=== PATIENT | female | born 1950 | race Caucasian/White ===

== ENCOUNTER → 2017-01-19 | Outpatient (CLI) | payer MEDICARE ==
--- NOTE | 2017-01-19 13:44 | CT ---
EXAMINATION TYPE: CT brain wo con DATE OF EXAM: 01/19/2017 1:26 PM COMPARISON: NONE HISTORY: Head injury and acute post traumatic injury per order. Headache after injury. CT DLP: 943.80 mGycm. Automated Exposure Control for Dose Reduction was Utilized. TECHNIQUE: CT scan of the head is performed without contrast. FINDINGS: There is no acute intracranial hemorrhage, mass effect, or midline shift identified. The ventricles and sulci are within normal limits in size. Asymmetry to the ventricles is presumed norm al variant. Leyva-white matter differentiation is maintained. The globes are intact and the visualized sinuses are clear. The calvarium is intact. There is small left-sided supraorbital acute soft tissue hematoma. IMPRESSION: No acute intracranial hemorrhage or midline shift is seen. Results communicated to ordering physician janitorial assistant as requested at time of dictation via telephone.
== END ==
LOC: RADCTMAIN 12:56
PROVIDERS: ATTEND Physician Assistant Medical
DX: S09.90XA Unspecified injury of head, initial encounter (principal)
CPT/HCPCS: 70450

== ENCOUNTER 2022-08-26 14:15 | Inpatient (IN) | payer MEDICARE ==
[2022-08-26 16:13] LABS: Basophils % (A) 0 %; Eosinophils % (A) 0 %; HCT 40.4 % (34.0-46.0); HGB 13.8 gm/dL (11.4-16.0); Lymphocytes # (A) 1.1 k/uL (1.0-4.8); Lymphocytes % (A) 7 %; MCH 30.1 pg (25.0-35.0); MCHC 34.3 g/dL (31.0-37.0); MCV 87.9 fL (80.0-100.0); Mean Platelet Volume 7.6; Monocytes # (A) 0.5 k/uL (0-1.0); Monocytes % (A) 3 %; Neutrophils # (A) 12.9 k/uL (1.3-7.7); Neutrophils % (A) 88 %; Platelet Count 327 k/uL (150-450); RDW 13.4 % (11.5-15.5); WBC 14.7 k/uL (3.8-10.6)
[2022-08-26 16:28] LABS: Albumin 4.7 g/dL (3.5-5.0); Calcium 9.1 mg/dL (8.4-10.2); Potassium 2.3 mmol/L (3.5-5.1); Total Bilirubin 1.6 mg/dL (0.2-1.3); Total Protein 7.5 g/dL (6.3-8.2)
[2022-08-26] MEDS ORDERED: Potassium Replacement Protocol 1 EACH MISC MISCELLANE PRN (17:04)
[2022-08-26] MEDS ORDERED: HYDROmorphone 1 MG/ML 1 ML SYRINGE IVP STA (17:08)
[2022-08-26] MEDS ORDERED: SODIUM CHLORIDE 0.9% 1,000 ML IV ONE (17:08)
[2022-08-26] MEDS ORDERED: ONDANSETRON 4 MG/2 ML VIAL IVP STA (17:08)
--- NOTE | 2022-08-26 17:46 | CT ---
EXAMINATION TYPE: CT abdomen pelvis w con DATE OF EXAM: 08/26/2022 HISTORY: abdominal pain, nausea, vomiting. Abdominal distention. CT DLP: 467.9mGycm Automated Exposure Control for Dose Reduction was Utilized. CONTRAST: CT scan of the abdomen and pelvis is performed with IV Contrast, patient injected with 80cc mL of Iso gagandeep 300. COMPARISON: None. FINDINGS: LUNG BASES: No significant abnormality is appreciated. LIVER/GB: Cholecystectomy clips are seen. PANCREAS: No significant abnormality is seen. SPLEEN: No significant abnormality is seen. ADRENALS: No significant abnormality is seen. KIDNEYS: Incidental subcentimeter exophytic thin-walled cyst left kidney laterally axial image 28 and on the right axial image 37. BOWEL: Small sized hiatal hernia. No suspicious dilatation of stomach or duodenal sweep. No suspiciou s small bowel dilatation. Moderate wall thickening in jejunal loops in the left abdomen. Possible ent eritis. Somewhat redundant nondilated sigmoid colon. Nondilated transverse along with left and right colon. Massively dilated structure in the lower abdomen and pelvis with air-fluid level likely refle cting cecal volvulus with terminal ileum being fluid-filled axial image 53 and coronal image 50. No a bnormal dilatation of ileal loops or of the terminal ileum. Slight swirling of structures in the righ t pelvis noted on coronal images. This is dilated up to 9.0 cm axial image 52. No free air. No suspic ious wall thickening or pneumatosis. UTERUS/ADNEXA: Uterus surgically absent or markedly atrophic. Small to moderate amount free fluid in the pelvis axial image 70 LYMPH NODES: No greater than 1cm abdominal or pelvic lymph nodes are appreciated. OSSEOUS STRUCTURES: No significant abnormality is seen. OTHER: No significant additional abnormality is seen. IMPRESSION: Findings consistent with acute cecal volvulus as detailed above. Critical results communicated to referring emergency room physician medical assistant secretary via telephone at time o f dictation.
[2022-08-26] MEDS ORDERED: POTASSIUM CHLORIDE ER 20 MEQ TAB.ER PO SCH (18:00)
[2022-08-26] MEDS ORDERED: POTASSIUM CHLORIDE 20 MEQ in WATER FOR INJECTION 1 100ML.BAG IVPB SCH (18:00)
--- NOTE | 2022-08-26 18:13 | ED ---
Abdominal Pain HPI - General Chief Complaint: Abdominal Pain Stated Complaint: Abd pain Time Seen by Provider: 08/26/22 17:02 Source: patient Mode of arrival: wheelchair - History of Present Illness Initial Comments: Patient is a 72-year-old female presenting with chief complaint of abdominal pain. Patient states that starting 5 days ago she was having difficulty having a bowel movement or passed gas. She has been experiencing nausea and vomiting. She called her PCPs office who advised trying Metamucil yesterday, she states that last night she started experiencing severe abdominal pain. She admits to bloating. Patient has a history of hypokalemia, she is on oral potassium pills at home, however she has not been taking them for the past few days due to her nausea and vomiting. No hematemesis. No fever or chills. No chest pain or difficulty breathing. No palpitations. - Related Data Home Medications Medication Instructions Recorded Confirmed Atorvastatin Calcium 40 mg PO DAILY 08/26/22 08/26/22 Citalopram Hydrobromide [CeleXA] 20 mg PO DAILY 08/26/22 08/26/22 Levothyroxine Sodium [Synthroid] 75 mcg PO AC-BRKFST 08/26/22 08/26/22 Potassium Chloride ER [K-Dur 20] 40 meq PO DAILY 08/26/22 08/26/22 Allergies Allergy/AdvReac Type Severity Reaction Status Date / Time No Known Allergies Allergy Verified 08/26/22 15:38 Review of Systems ROS Statement: Those systems with pertinent positive or pertinent negative responses have been documented in the HPI. ROS Other: All systems not noted in ROS Statement are negative. Past Medical History Past Medical History: No Reported History History of Any Multi-Drug Resistant Organisms: None Reported Past Surgical History: No Surgical Hx Reported Past Psychological History: No Psychological Hx Reported Smoking Status: Never smoker Past Alcohol Use History: None Reported Past Drug Use History: None Reported General Exam Limitations: no limitations General appearance: alert, in distress Head exam: Present: atraumatic, normocephalic, normal inspection Eye exam: Present: normal appearance Neck exam: Present: normal inspection Respiratory exam: Present: normal lung sounds bilaterally. Absent: respiratory distress, wheezes, rales, rhonchi, stridor Cardiovascular Exam: Present: regular rate, normal rhythm, normal heart sounds. Absent: systolic murmur, diastolic murmur, rubs, gallop, clicks GI/Abdominal exam: Present: distended, tenderness, guarding. Absent: soft Neurological exam: Present: alert, oriented X3, CN II-XII intact Psychiatric exam: Present: normal affect, normal mood Skin exam: Present: warm, dry, intact, normal color. Absent: rash Course Vital Signs 08/26/22 08/26/22 08/26/22 15:33 17:15 17:33 Temperature 98 F Pulse Rate 93 81 88 Respiratory 18 11 L 13 Rate Blood Pressure 159/92 O2 Sat by Pulse 98 Oximetry 08/26/22 08/26/22 08/26/22 17:45 18:00 18:15 Temperature Pulse Rate 81 78 95 Respiratory 13 11 L 13 Rate Blood Pressure O2 Sat by Pulse Oximetry 08/26/22 18:30 Temperature Pulse Rate 87 Respiratory 7 L Rate Blood Pressure O2 Sat by Pulse Oximetry Medical Decision Making - Medical Decision Making Patient is a 72-year-old female presenting with chief complaint of abdominal pain and distention accompanied by nausea and vomiting. Patient has had several days with inability to pass bowel movement or gas. Physical examination abdomen is hard and distended, intense diffuse pain. Lab work shows potassium of 2.3, replacement is ordered. Creatinine 2.6, consistent with patient's baseline. Bilirubin 1.6, patient has had cholecystectomy. CT shows acute cecal volvulus dilated up to 9.0 cm. No free air, no suspicious wall thickening or pneumatosis. Findings discussed with surgeon quality controller Dr. Wright, instructed to place patient nothing by mouth and call OR to arrange for stat surgery. Surgery instructed to call OR, I conveyed these findings and the need for surgery to the patient. She reports improved pain after Dilaudid, however still having some nausea and vomiting. She is instructed that she cannot nothing by mouth. She is agreeable with this plan. I discussed this case with my attending Dr. Moses. - Lab Data Result diagrams: 08/26/22 21:45 08/26/22 21:45 Lab Results 08/26/22 08/26/22 08/26/22 Range/Units 15:40 16:08 16:08 WBC 14.7 H (3.8-10.6) k/uL RBC 4.60 (3.80-5.40) m/uL Hgb 13.8 (11.4-16.0) gm/dL Hct 40.4 (34.0-46.0) % MCV 87.9 (80.0-100.0) fL MCH 30.1 (25.0-35.0) pg MCHC 34.3 (31.0-37.0) g/dL RDW 13.4 (11.5-15.5) % Plt Count 327 (150-450) k/uL MPV 7.6 Neutrophils % 88 % Lymphocytes % 7 % Monocytes % 3 % Eosinophils % 0 % Basophils % 0 % Neutrophils # 12.9 H (1.3-7.7) k/uL Lymphocytes # 1.1 (1.0-4.8) k/uL Monocytes # 0.5 (0-1.0) k/uL Eosinophils # 0.0 (0-0.7) k/uL Basophils # 0.0 (0-0.2) k/uL Sodium 135 L (137-145) mmol/L Potassium 2.3 L* (3.5-5.1) mmol/L Chloride 100 (98-107) mmol/L Carbon Dioxide 25 (22-30) mmol/L Anion Gap 10 mmol/L BUN 13 (7-17) mg/dL Creatinine 1.26 H (0.52-1.04) mg/dL Est GFR (CKD-EPI)AfAm 49 (>60 ml/min/1.73 sqM) Est GFR (CKD-EPI)NonAf 43 (>60 ml/min/1.73 sqM) Glucose 127 H (74-99) mg/dL Calcium 9.1 (8.4-10.2) mg/dL Magnesium 2.0 (1.6-2.3) mg/dL Total Bilirubin 1.6 H (0.2-1.3) mg/dL AST 28 (14-36) U/L ALT 20 (4-34) U/L Alkaline Phosphatase 70 (38-126) U/L Total Protein 7.5 (6.3-8.2) g/dL Albumin 4.7 (3.5-5.0) g/dL Amylase 85 (30-110) U/L Lipase 121 (23-300) U/L Urine Color Colorless Urine Appearance Clear (Clear) Urine pH 5.5 (5.0-8.0) Ur Specific [place] 1.026 (1.001-1.035) Urine Protein Trace H (Negative) Urine Glucose (UA) Negative (Negative) Urine Ketones Negative (Negative) Urine Blood Small H (Negative) Urine Nitrite Negative (Negative) Urine Bilirubin Negative (Negative) Urine Urobilinogen <2.0 (<2.0) mg/dL Ur Leukocyte Esterase Negative (Negative) Urine RBC 7 H (0-5) /hpf Urine WBC 1 (0-5) /hpf Urine Bacteria Rare H (None) /hpf Hyaline Casts 4 H (0-2) /lpf Urine Mucus Rare H (None) /hpf Critical Care Time Critical Care Time: Yes Total Critical Care Time: 31 Disposition Clinical Impression: Cecal volvulus Disposition: ADMITTED IP TO THIS [facility] Condition: Serious Time of Disposition: 18:06 Decision to Admit Reason: Admit from EC Decision Date: 08/26/22 Decision Time: 18:06
[2022-08-26] MEDS ORDERED: HYDROmorphone 1 MG/ML 1 ML SYRINGE IVP PRN (19:06)
[2022-08-26] MEDS ORDERED: NALOXONE 0.4 MG/ML 1 ML VIAL IV PRN (19:06)
[2022-08-26] MEDS ORDERED: PHENYLEPHRINE-0.9% NACL SYG 1,000 MCG/10 ML SYRINGE ONE (19:30)
[2022-08-26] MEDS ORDERED: PROPOFOL 10 MG/ML 20 ML VIAL IV ONE (19:30)
[2022-08-26] MEDS ORDERED: SODIUM CHLORIDE 0.9% 100 ML with ceFAZolin 2,000 MG IV ONE ×2 (19:30)
[2022-08-26] MEDS ORDERED: LIDOCAINE 4% LTA KIT (4 ML) TOPICAL ONE (19:30)
[2022-08-26] MEDS ORDERED: SUCCINYLCHOLINE CHLORIDE 200 MG/10 ML VIAL IV ONE (19:30)
[2022-08-26] MEDS ORDERED: fentaNYL (PF) 50 MCG/ML 2 ML AMP ONE (19:30)
[2022-08-26] MEDS ORDERED: HEPARIN SODIUM,PORCINE 5,000 UNIT/ML 1 ML VIAL ONE (19:30)
[2022-08-26] MEDS ORDERED: ROCURONIUM 10 MG/ML (5 ML VIAL) IV ONE (19:30)
[2022-08-26] MEDS ORDERED: MIDAZOLAM 2 MG/2 ML VIAL ONE (19:30)
[2022-08-26] MEDS ORDERED: LACTATED RINGERS 1,000 ML IV ONE (19:30)
--- NOTE | 2022-08-26 19:34 | P.GSHP ---
History of Present Illness H&P Date: 08/26/22 Chief Complaint: Abdominal pain nausea vomiting This is a 72-year-old female who has a three-day history of progressive abdominal pain nausea vomiting. Patient presents emergency room was found have acute cecal volvulus with a massively dilated cecum. Patient states she's had pain for the last 3 days with progressive nausea and vomiting Past Medical History Past Medical History: No Reported History History of Any Multi-Drug Resistant Organisms: None Reported Past Surgical History: No Surgical Hx Reported Past Psychological History: No Psychological Hx Reported Smoking Status: Never smoker Past Alcohol Use History: None Reported Past Drug Use History: None Reported Medications and Allergies Home Medications Medication Instructions Recorded Confirmed Type Atorvastatin Calcium 40 mg PO DAILY 08/26/22 08/26/22 History Citalopram Hydrobromide [CeleXA] 20 mg PO DAILY 08/26/22 08/26/22 History Levothyroxine Sodium [Synthroid] 75 mcg PO AC-BRKFST 08/26/22 08/26/22 History Potassium Chloride ER [K-Dur 20] 40 meq PO DAILY 08/26/22 08/26/22 History Allergies Allergy/AdvReac Type Severity Reaction Status Date / Time No Known Allergies Allergy Verified 08/26/22 15:38 Surgical - Exam Vital Signs Temp Pulse Resp BP Pulse Ox 98 F 93 18 159/92 98 08/26/22 15:33 08/26/22 15:33 08/26/22 15:33 08/26/22 15:33 08/26/22 15:33 - General well developed, moderate distress - Eyes PERRL - ENT normal pinna - Neck no masses - Respiratory normal expansion - Cardiovascular Rhythm: regular - Abdomen Abdomen is distended. There is significant tenderness right lower quadrant Abdomen: soft Results - Labs 08/26/22 16:08 08/26/22 16:08 Abnormal Lab Results - Last 24 Hours (Table) 08/26/22 08/26/22 Range/Units 16:08 16:08 WBC 14.7 H (3.8-10.6) k/uL Neutrophils # 12.9 H (1.3-7.7) k/uL Sodium 135 L (137-145) mmol/L Potassium 2.3 L* (3.5-5.1) mmol/L Creatinine 1.26 H (0.52-1.04) mg/dL Glucose 127 H (74-99) mg/dL Total Bilirubin 1.6 H (0.2-1.3) mg/dL Diabetes panel 08/26/22 Range/Units 16:08 Sodium 135 L (137-145) mmol/L Potassium 2.3 L* (3.5-5.1) mmol/L Chloride 100 (98-107) mmol/L Carbon Dioxide 25 (22-30) mmol/L BUN 13 (7-17) mg/dL Creatinine 1.26 H (0.52-1.04) mg/dL Glucose 127 H (74-99) mg/dL Calcium 9.1 (8.4-10.2) mg/dL AST 28 (14-36) U/L ALT 20 (4-34) U/L Alkaline Phosphatase 70 (38-126) U/L Total Protein 7.5 (6.3-8.2) g/dL Albumin 4.7 (3.5-5.0) g/dL Calcium panel 08/26/22 Range/Units 16:08 Calcium 9.1 (8.4-10.2) mg/dL Albumin 4.7 (3.5-5.0) g/dL Pituitary panel 08/26/22 Range/Units 16:08 Sodium 135 L (137-145) mmol/L Potassium 2.3 L* (3.5-5.1) mmol/L Chloride 100 (98-107) mmol/L Carbon Dioxide 25 (22-30) mmol/L BUN 13 (7-17) mg/dL Creatinine 1.26 H (0.52-1.04) mg/dL Glucose 127 H (74-99) mg/dL Calcium 9.1 (8.4-10.2) mg/dL Adrenal panel 08/26/22 Range/Units 16:08 Sodium 135 L (137-145) mmol/L Potassium 2.3 L* (3.5-5.1) mmol/L Chloride 100 (98-107) mmol/L Carbon Dioxide 25 (22-30) mmol/L BUN 13 (7-17) mg/dL Creatinine 1.26 H (0.52-1.04) mg/dL Glucose 127 H (74-99) mg/dL Calcium 9.1 (8.4-10.2) mg/dL Total Bilirubin 1.6 H (0.2-1.3) mg/dL AST 28 (14-36) U/L ALT 20 (4-34) U/L Alkaline Phosphatase 70 (38-126) U/L Total Protein 7.5 (6.3-8.2) g/dL Albumin 4.7 (3.5-5.0) g/dL Assessment and Plan Assessment: Cecal volvulus. Patient will undergo exploratory laparotomy with possible right colectomy. .
--- NOTE | 2022-08-26 20:15 | P.OP ---
Date of Procedure: 08/26/22 Preoperative Diagnosis: Cecal volvulus Postoperative Diagnosis: Cecal volvulus with ischemic bowel Procedure(s) Performed: Right colectomy Anesthesia: AURELIO Surgeon: Win Wright Estimated Blood Loss (ml): 50 Pathology: other (Right colon) Condition: critical Disposition: ICU Operative Findings: Potassium 2.3 Description of Procedure: The patient's placed on the operative table in the supine position. She received general endotracheal tube anesthesia. Her abdomen was prepped and draped usual sterile fashion. The skin was incised in midline. The peritoneal cavity is opened. Left cautery used to divide the abdominal wall. The cecum was massively distended and appeared to be ischemic. The cecum was brought up in the wound. And then an adhesive band causing the volvulus was lysed. There was patchy necrosis cecum. Decided perform right colectomy. The terminal ileum was transected with a GI stapler. And then the distal right colon was transected with a GI stapler. Using the Enseal device the mesentery the bowel was divided. Specimen sent to pathology. [id number] functional end-to-end staple anastomosis created using the MAURICIO and TA stapler. 3 adjacent tissue uses a crotch stitch. The abdomen was irrigated there is no bleeding seen. The fascia was then closed with looped #1 PDS suture. Skin was closed jorge. Patient tolerated procedure well. She was sent to recovery room in stable condition. The patient was receiving her potassium replacement intraoperatively.
[2022-08-26] MEDS ORDERED: HYDROmorphone 0.5 MG/0.5 ML SYRINGE IVP ONE (21:06)
--- NOTE | 2022-08-26 21:23 | XR ---
EXAMINATION TYPE: XR chest 1V portable DATE OF EXAM: 08/26/2022 CLINICAL HISTORY: Central line placement. TECHNIQUE: Single AP portable upright view of the chest is obtained. COMPARISON: None FINDINGS: There is right internal jugular central venous catheter terminating in right atrium. Mild interstitial prominence bilaterally. No suspicious focal airspace opacity, pleural effusion, or pneum othorax seen bilaterally. Cardiac silhouette size is within normal limits. Osseous structures are int act. Cholecystectomy clips are noted. IMPRESSION: As above.
[2022-08-26 21:53] LABS: Glucose,Whole Blood 173 mg/dL (70-110)
[2022-08-26 21:57] LABS: Basophils % (A) 0 %; Eosinophils % (A) 0 %; HCT 34.5 % (34.0-46.0); Lymphocytes # (A) 0.5 k/uL (1.0-4.8); Lymphocytes % (A) 5 %; MCH 31.2 pg (25.0-35.0); MCHC 34.8 g/dL (31.0-37.0); MCV 89.7 fL (80.0-100.0); Mean Platelet Volume 7.4; Monocytes # (A) 0.5 k/uL (0-1.0); Monocytes % (A) 4 %; Neutrophils # (A) 10.4 k/uL (1.3-7.7); Neutrophils % (A) 91 %; Platelet Count 297 k/uL (150-450); RBC 3.84 m/uL (3.80-5.40); WBC 11.5 k/uL (3.8-10.6)
[2022-08-26 22:20] LABS: Calcium 8.1 mg/dL (8.4-10.2)
[2022-08-26] MEDS: HYDROmorphone 1 MG/ML 1 ML SYRINGE IVP PRN (22:23)
[2022-08-26] MEDS: D5-0.45% NACL WITH KCL 20MEQ/L 1,000 ML IV SCH (22:23)
[2022-08-26] MEDS: ONDANSETRON 4 MG/2 ML VIAL IVP PRN (22:24)
[2022-08-26 22:31] LABS: Potassium 2.6 mmol/L (3.5-5.1)
[2022-08-26] MEDS: POTASSIUM CHLORIDE 20 MEQ in WATER FOR INJECTION 1 100ML.BAG IVPB SCH (22:42)
[2022-08-26 23:47] LABS: Appearance,Urine Clear (Clear); Bacteria,Urine Rare /hpf; Bilirubin,Urine Negative (Negative); Blood,Urine Small (Negative); Color,Urine Colorless; Glucose,Urine (UA) Negative (Negative); Hyaline Casts,Urine 4 /lpf (0-2); Ketones,Urine Negative (Negative); Leukocyte Esterase,Urine Negative (Negative); Mucus,Urine Rare /hpf; Nitrite,Urine Negative (Negative); PH, Urine 5.5 (5.0-8.0); Protein,Urine Trace (Negative); RBC,Urine 7 /hpf (0-5); Specific Gravity,Urine 1.026 (1.001-1.035); Urobilinogen,Urine <2.0 mg/dL (<2.0); WBC,Urine 1 /hpf (0-5)
[2022-08-26] MEDS: HEPARIN SODIUM,PORCINE/PF 5,000 UNIT/0.5 ML SYRINGE SQ SCH (23:54)
[2022-08-27] MEDS: POTASSIUM CHLORIDE 20 MEQ in WATER FOR INJECTION 1 100ML.BAG IVPB SCH ×2 (00:24→02:41)
[2022-08-27] MEDS: HYDROmorphone 1 MG/ML 1 ML SYRINGE IVP PRN ×6 (02:41→23:51)
[2022-08-27] MEDS: D5-0.45% NACL WITH KCL 20MEQ/L 1,000 ML IV SCH ×3 (04:55→23:46)
[2022-08-27 06:10] LABS: Basophils % (A) 0 %; Eosinophils % (A) 0 %; HCT 33.3 % (34.0-46.0); Lymphocytes # (A) 0.5 k/uL (1.0-4.8); Lymphocytes % (A) 4 %; MCH 29.9 pg (25.0-35.0); MCHC 32.9 g/dL (31.0-37.0); MCV 90.7 fL (80.0-100.0); Mean Platelet Volume 7.8; Monocytes # (A) 0.6 k/uL (0-1.0); Monocytes % (A) 5 %; Neutrophils # (A) 11.1 k/uL (1.3-7.7); Neutrophils % (A) 89 %; Platelet Count 304 k/uL (150-450); RBC 3.67 m/uL (3.80-5.40); WBC 12.5 k/uL (3.8-10.6)
[2022-08-27 06:32] LABS: Calcium 7.7 mg/dL (8.4-10.2); Magnesium 1.7 mg/dL (1.6-2.3); Potassium 3.6 mmol/L (3.5-5.1)
[2022-08-27] MEDS ORDERED: Magnesium Replacement Protocol 1 EACH MISC MISCELLANE PRN (06:51)
[2022-08-27] MEDS: MAGNESIUM SULFATE-D5W PMX 1 GM in DEXTROSE/WATER 1 100ML.BAG IVPB SCH ×2 (07:30→09:21)
[2022-08-27] MEDS: POTASSIUM CHLORIDE 10 MEQ in WATER FOR INJECTION 1 100ML.BAG IVPB SCH ×4 (07:31→17:01)
[2022-08-27] MEDS: ALVIMOPAN 12 MG CAPSULE PO SCH ×2 (09:21→20:42)
[2022-08-27] MEDS: HEPARIN SODIUM,PORCINE/PF 5,000 UNIT/0.5 ML SYRINGE SQ SCH ×3 (09:21→23:47)
--- NOTE | 2022-08-27 11:10 | P.CNPUL ---
History of Present Illness Consult date: 08/27/22 Requesting physician: Win Wright Reason for consult: other Chief complaint: Abdominal pain. History of present illness: Pulmonary/critical care consult dated 08/27/2022. 72-year-old female who presents to the emergency department, on August 26, complaining of abdominal pain. The pain started 5 days ago when she was having a bowel movement. She has been having some nausea and vomiting. She called her primary care physician who recommended Metamucil. The abdominal pain got much more severe, so she came in to be evaluated. A computed tomography scan of the abdomen was performed, and was consistent with an acute cecal volvulus. The patient ended up going to the operating room yesterday, he had a right colectomy. Because of severe hypokalemia, she came back to the ICU. Currently, she is resting comfortably. She is postop day #1. She is on 2 L of oxygen. She's getting dextrose with half-normal saline and 20 mg once a potassium at 125 mL an hour. This morning's potassium is 3.6. She has a history of chronically low potassium, hyperlipidemia, and hypothyroidism. White count 12.5, hemoglobin 11, hematocrit 33.3, and platelet count 304,000. Sodium 135, potassium 3.6, chlorides 104, CO2 26, BUN 13, creatinine 1.14. The chest x-ray from yesterday is reviewed. Review of Systems REVIEW OF SYSTEMS: CONSTITUTIONAL: [Negative.] NEUROLOGIC: [ Negative.] HEENT: [ Negative.] CARDIAC: [Negative.] PULMONARY: [Negative.] GI: Abdominal pain, nausea, and vomiting. : [Negative.] RHEUMATOLOGIC: [ Negative.] IMMUNOLOGIC: [ Negative.] ENDOCRINE: [Negative. ] DERMATOLOGIC: [Negative.] Past Medical History Past Medical History: No Reported History History of Any Multi-Drug Resistant Organisms: None Reported Past Surgical History: No Surgical Hx Reported Past Psychological History: No Psychological Hx Reported Smoking Status: Never smoker Past Alcohol Use History: None Reported Past Drug Use History: None Reported Medications and Allergies Home Medications Medication Instructions Recorded Confirmed Type Atorvastatin Calcium 40 mg PO DAILY 08/26/22 08/26/22 History Citalopram Hydrobromide [CeleXA] 20 mg PO DAILY 08/26/22 08/26/22 History Levothyroxine Sodium [Synthroid] 75 mcg PO AC-BRKFST 08/26/22 08/26/22 History Potassium Chloride ER [K-Dur 20] 40 meq PO DAILY 08/26/22 08/26/22 History Allergies Allergy/AdvReac Type Severity Reaction Status Date / Time No Known Allergies Allergy Verified 08/26/22 15:38 Physical Exam Osteopathic Statement: *. No significant issues noted on an osteopathic str uctural exam other than those noted in the History and Physical/Consult. Vitals: Vital Signs Temp Pulse Pulse Resp BP BP Pulse Ox 08/27/22 10:30 82 12 107/61 98 08/27/22 10:00 82 12 118/60 98 08/27/22 09:30 88 14 118/60 98 08/27/22 09:00 92 12 124/73 98 08/27/22 08:30 98 18 114/63 98 08/27/22 08:00 99.2 F 89 12 116/75 97 08/27/22 07:30 98 30 H 139/75 99 08/27/22 07:00 100 17 121/67 99 08/27/22 06:30 92 83 H 115/68 98 08/27/22 06:00 93 25 H 112/73 98 08/27/22 05:30 100 15 129/77 99 08/27/22 05:00 95 14 120/66 99 08/27/22 04:30 89 13 115/62 99 08/27/22 04:00 98.8 F 96 85 8 L 120/65 98 08/27/22 03:30 95 9 L 124/66 98 08/27/22 03:00 96 11 L 138/74 98 08/27/22 02:45 99 14 134/74 99 08/27/22 02:30 94 12 125/66 98 08/27/22 02:15 92 14 124/68 98 08/27/22 02:00 94 12 119/70 99 08/27/22 01:45 91 13 121/72 99 08/27/22 01:30 89 11 L 122/68 99 08/27/22 01:15 85 11 L 124/69 98 08/27/22 01:00 89 10 L 122/71 98 08/27/22 00:45 86 9 L 129/76 99 08/27/22 00:30 86 11 L 120/69 99 08/27/22 00:15 89 9 L 127/69 98 08/27/22 00:11 89 15 127/69 98 08/27/22 00:00 97.7 F 93 8 L 135/74 98 08/26/22 23:59 85 9 L 08/26/22 23:45 94 12 120/67 99 08/26/22 23:30 93 8 L 130/73 98 08/26/22 23:15 93 9 L 123/75 99 08/26/22 23:00 88 9 L 134/77 99 08/26/22 22:45 95 18 130/72 98 08/26/22 22:30 91 28 H 142/73 98 08/26/22 22:15 86 15 152/86 99 08/26/22 22:00 97.7 F 91 18 150/73 99 08/26/22 21:49 91 42 H 99 08/26/22 21:30 85 16 148/68 100 08/26/22 21:15 84 16 146/71 100 08/26/22 21:00 90 18 167/87 100 08/26/22 20:50 97.7 F 90 12 152/86 99 08/26/22 20:45 95 18 152/72 100 08/26/22 20:31 97.3 F L 91 20 136/75 98 08/26/22 18:30 87 7 L 08/26/22 18:15 95 13 08/26/22 18:00 78 11 L 08/26/22 17:45 81 13 08/26/22 17:33 88 13 08/26/22 17:15 81 11 L 08/26/22 15:33 98 F 93 18 159/92 98 Intake and Output 08/26/22 08/27/22 08/27/22 22:59 06:59 14:59 Intake Total 1950 1200 700 Output Total 795 305 140 Balance 1155 895 560 Intake: IV 1950 1200 600 D5-0.45% NaCl with KCl 250 1000 500 20Meq/l 1,000 ml @ 125 mls/hr IV .Q8H [facility] Rx#: [id number] Potassium Chloride 20 meq 100 200 100 In Water For Injection 1 100ml.bag @ 50 mls/hr IVPB Q2H [facility] Rx#: [id number] Intake, IV Titration 100 Amount Magnesium Sulfate-D5w Pmx 100 1 gm In Dextrose/Water 1 100ml.bag @ 100 mls/hr IVPB Q1H [facility] Rx#: [id number] Output: Urine 775 305 140 Estimated Blood Loss 20 Other: Voiding Method Indwelling Catheter Indwelling Catheter Weight 43.091 kg 53.3 kg No acute distress, oriented 3. Currently on 2 L of oxygen. HEENT examination is grossly unremarkable. Neck supple. Full range of motion. No adenopathy thyromegaly or neck vein distention. Cardiovascular examination reveals regular rhythm rate. S1-S2 normal. No S3 or S4. No discernible murmur noted. Heart rate 81 bpm. Lungs reveal clear breath sounds. Breath sounds are equal bilaterally. No adventitious lung sounds including wheezes rhonchi or crackles. Abdomen is soft. No bowel sounds. Dressing is noted. Extremities are intact. No cyanosis clubbing or edema. Skin is without rash or lesion. Neurologic examination is brief but nonfocal. Results - Laboratory Findings CBC and BMP: 08/27/22 05:55 08/27/22 05:55 Abnormal lab findings: Abnormal Labs 08/26/22 08/26/22 08/26/22 15:40 16:08 16:08 WBC 14.7 H RBC Hgb Hct Neutrophils # 12.9 H Lymphocytes # Sodium 135 L Potassium 2.3 L* Creatinine 1.26 H Glucose 127 H POC Glucose (mg/dL) Calcium Total Bilirubin 1.6 H Urine Protein Trace H Urine Blood Small H Urine RBC 7 H Urine Bacteria Rare H Hyaline Casts 4 H Urine Mucus Rare H 08/26/22 08/26/22 08/26/22 21:45 21:45 21:51 WBC 11.5 H RBC Hgb Hct Neutrophils # 10.4 H Lymphocytes # 0.5 L Sodium 133 L Potassium 2.6 L* Creatinine 1.13 H Glucose 172 H POC Glucose (mg/dL) 173 H Calcium 8.1 L Total Bilirubin Urine Protein Urine Blood Urine RBC Urine Bacteria Hyaline Casts Urine Mucus 08/27/22 08/27/22 05:55 05:55 WBC 12.5 H RBC 3.67 L Hgb 11.0 L Hct 33.3 L Neutrophils # 11.1 H Lymphocytes # 0.5 L Sodium 135 L Potassium Creatinine 1.14 H Glucose 136 H POC Glucose (mg/dL) Calcium 7.7 L Total Bilirubin Urine Protein Urine Blood Urine RBC Urine Bacteria Hyaline Casts Urine Mucus - Diagnostic Findings Chest x-ray: image reviewed Assessment and Plan Assessment: Postop day #1, status post right colectomy for acute cecal volvulus, and incisional hernia repair. History of hyperlipidemia. History of hypothyroidism. Her chronically low potassium. Plan: Plan dated 08/27/2022. The patient could be transferred out of the intensive care unit. Her potassium is now 3.6. The patient is receiving O2 at 2 L. Labs, x-rays, medications are all reviewed. The patient did well with surgery. She is postop day #1. She continues on D5.45, with 20 meq of potassium at 125 mL an hour. Time with Patient: Greater than 30
--- NOTE | 2022-08-27 11:36 | P.CONS ---
History of Present Illness - Reason for Consult Consult date: 08/27/22 Hypothyroidism Requesting physician: Win Wright - History of Present Illness Patient is a 72 yo female with hypothyroidism, dyslipidemia, and depression who presented with complaints of abdominal pain. CT abdomen and plevis showed acute cecal volvulus she underwent emergent right sided colectomy. Patient seen and examined at bedside. She reports that she started having some abdominal pain initially last Tuesday after an episode of vomiting. Her pain became excruciating on Tuesday night and morning. Was mostly right sided. Currently her pain is recently controlled, she denies any nausea or vomiting, denies any shortness of breath, denies any chest pain. Pertinent positives and negatives as discussed in HPI, a complete review of systems was performed and all other systems are negative. Vital signs reviewed General: nontoxic, mild distress due to pain, appears at stated age Derm: warm, dry Head: atraumatic, normocephalic, symmetric Eyes: EOMI, no lid lag, anicteric sclera, pupils equal round reactive to light ENT: Nose and ears atraumatic, no thrush, no pharyngeal erythema Neck: No thyromegaly, no cervical lymphadenopathy, trachea midline, supple Mouth: no lip lesion, mucus membranes moist Cardiovascular: S1S2 reg, no murmur, positive posterior tibial pulse bilateral, no edema, capillary refill less than 2 seconds Lungs: Decreased breath sounds bilateral,, no rhonchi, no rales, no wheeze, no accessory muscle use Abdominal: soft, tender to palpation diffusely, dressing in place over , no guarding, no appreciable organomegaly, normal bowel sounds Ext: no gross muscle atrophy, muscle strength 5 out of 5 in all 4 extremities, no contractures Neuro: CN II-XII grossly intact, light touch intact all 4 extremities, finger to nose within normal limits, Psych: Alert, oriented, appropriate affect Assessment/Plan: Acute Cecal Volvulus s/p right colectomy - surgical management - pain control - IV fluids - entreg Acute blood loss anemia - follow CBC - no indication for transfusion CKD III, at baseline - follow BMP closely - Avoid additional nephrotoxic agents Hypokalemia, resolved - continue to monitor Chornic: Hypothyroidism- levothyroxine Dyslipidemia- resume lipitor once tolerating orals Anxiety- celexa once tolerating orals Thank you for allowing us to participate in the care of this pleasant patient. Do not hesitate to contact us with questions. Someone can be reached from the [facility] hospitalist group all hours of the day at [phone] or via Charge Payment. Past Medical History Past Medical History: No Reported History History of Any Multi-Drug Resistant Organisms: None Reported Past Surgical History: No Surgical Hx Reported Past Psychological History: No Psychological Hx Reported Smoking Status: Never smoker Past Alcohol Use History: None Reported Past Drug Use History: None Reported Medications and Allergies Home Medications Medication Instructions Recorded Confirmed Type Atorvastatin Calcium 40 mg PO DAILY 08/26/22 08/26/22 History Citalopram Hydrobromide [CeleXA] 20 mg PO DAILY 08/26/22 08/26/22 History Levothyroxine Sodium [Synthroid] 75 mcg PO AC-BRKFST 08/26/22 08/26/22 History Potassium Chloride ER [K-Dur 20] 40 meq PO DAILY 08/26/22 08/26/22 History Allergies Allergy/AdvReac Type Severity Reaction Status Date / Time No Known Allergies Allergy Verified 08/26/22 15:38 Physical Exam Osteopathic Statement: *. No significant issues noted on an osteopathic structural exam other than those noted in the History and Physical/Consult. Vitals: Vital Signs Temp Pulse Pulse Resp BP BP Pulse Ox 08/27/22 07:30 98 30 H 139/75 99 08/27/22 07:00 100 17 121/67 99 08/27/22 06:30 92 83 H 115/68 98 08/27/22 06:00 93 25 H 112/73 98 08/27/22 05:30 100 15 129/77 99 08/27/22 05:00 95 14 120/66 99 08/27/22 04:30 89 13 115/62 99 08/27/22 04:00 98.8 F 96 85 8 L 120/65 98 08/27/22 03:30 95 9 L 124/66 98 08/27/22 03:00 96 11 L 138/74 98 08/27/22 02:45 99 14 134/74 99 08/27/22 02:30 94 12 125/66 98 08/27/22 02:15 92 14 124/68 98 08/27/22 02:00 94 12 119/70 99 08/27/22 01:45 91 13 121/72 99 08/27/22 01:30 89 11 L 122/68 99 08/27/22 01:15 85 11 L 124/69 98 08/27/22 01:00 89 10 L 122/71 98 08/27/22 00:45 86 9 L 129/76 99 08/27/22 00:30 86 11 L 120/69 99 08/27/22 00:15 89 9 L 127/69 98 08/27/22 00:11 89 15 127/69 98 08/27/22 00:00 97.7 F 93 8 L 135/74 98 08/26/22 23:59 85 9 L 08/26/22 23:45 94 12 120/67 99 08/26/22 23:30 93 8 L 130/73 98 08/26/22 23:15 93 9 L 123/75 99 08/26/22 23:00 88 9 L 134/77 99 08/26/22 22:45 95 18 130/72 98 08/26/22 22:30 91 28 H 142/73 98 08/26/22 22:15 86 15 152/86 99 08/26/22 22:00 97.7 F 91 18 150/73 99 08/26/22 21:49 91 42 H 99 08/26/22 21:30 85 16 148/68 100 08/26/22 21:15 84 16 146/71 100 08/26/22 21:00 90 18 167/87 100 08/26/22 20:50 97.7 F 90 12 152/86 99 08/26/22 20:45 95 18 152/72 100 08/26/22 20:31 97.3 F L 91 20 136/75 98 08/26/22 18:30 87 7 L 08/26/22 18:15 95 13 08/26/22 18:00 78 11 L 08/26/22 17:45 81 13 08/26/22 17:33 88 13 08/26/22 17:15 81 11 L 08/26/22 15:33 98 F 93 18 159/92 98 Intake and Output 08/26/22 08/27/22 08/27/22 22:59 06:59 14:59 Intake Total 1450 1200 125 Output Total 445 305 50 Balance 1005 895 75 Intake: IV 1450 1200 125 D5-0.45% NaCl with KCl 250 1000 125 20Meq/l 1,000 ml @ 125 mls/hr IV .Q8H [facility] Rx#: [id number] Potassium Chloride 20 meq 100 200 In Water For Injection 1 100ml.bag @ 50 mls/hr IVPB Q2H [facility] Rx#: [id number] Output: Urine 425 305 50 Estimated Blood Loss 20 Other: Voiding Method Indwelling Catheter Weight 43.091 kg 53.3 kg Results CBC & Chem 7: 08/27/22 05:55 08/27/22 05:55 Labs: Abnormal Lab Results - Last 24 Hours (Table) 08/26/22 08/26/22 08/26/22 Range/Units 15:40 16:08 16:08 WBC 14.7 H (3.8-10.6) k/uL RBC (3.80-5.40) m/uL Hgb (11.4-16.0) gm/dL Hct (34.0-46.0) % Neutrophils # 12.9 H (1.3-7.7) k/uL Lymphocytes # (1.0-4.8) k/uL Sodium 135 L (137-145) mmol/L Potassium 2.3 L* (3.5-5.1) mmol/L Creatinine 1.26 H (0.52-1.04) mg/dL Glucose 127 H (74-99) mg/dL POC Glucose (mg/dL) (70-110) mg/dL Calcium (8.4-10.2) mg/dL Total Bilirubin 1.6 H (0.2-1.3) mg/dL Urine Protein Trace H (Negative) Urine Blood Small H (Negative) Urine RBC 7 H (0-5) /hpf Urine Bacteria Rare H (None) /hpf Hyaline Casts 4 H (0-2) /lpf Urine Mucus Rare H (None) /hpf 08/26/22 08/26/22 08/26/22 Range/Units 21:45 21:45 21:51 WBC 11.5 H (3.8-10.6) k/uL RBC (3.80-5.40) m/uL Hgb (11.4-16.0) gm/dL Hct (34.0-46.0) % Neutrophils # 10.4 H (1.3-7.7) k/uL Lymphocytes # 0.5 L (1.0-4.8) k/uL Sodium 133 L (137-145) mmol/L Potassium 2.6 L* (3.5-5.1) mmol/L Creatinine 1.13 H (0.52-1.04) mg/dL Glucose 172 H (74-99) mg/dL POC Glucose (mg/dL) 173 H (70-110) mg/dL Calcium 8.1 L (8.4-10.2) mg/dL Total Bilirubin (0.2-1.3) mg/dL Urine Protein (Negative) Urine Blood (Negative) Urine RBC (0-5) /hpf Urine Bacteria (None) /hpf Hyaline Casts (0-2) /lpf Urine Mucus (None) /hpf 08/27/22 08/27/22 Range/Units 05:55 05:55 WBC 12.5 H (3.8-10.6) k/uL RBC 3.67 L (3.80-5.40) m/uL Hgb 11.0 L (11.4-16.0) gm/dL Hct 33.3 L (34.0-46.0) % Neutrophils # 11.1 H (1.3-7.7) k/uL Lymphocytes # 0.5 L (1.0-4.8) k/uL Sodium 135 L (137-145) mmol/L Potassium (3.5-5.1) mmol/L Creatinine 1.14 H (0.52-1.04) mg/dL Glucose 136 H (74-99) mg/dL POC Glucose (mg/dL) (70-110) mg/dL Calcium 7.7 L (8.4-10.2) mg/dL Total Bilirubin (0.2-1.3) mg/dL Urine Protein (Negative) Urine Blood (Negative) Urine RBC (0-5) /hpf Urine Bacteria (None) /hpf Hyaline Casts (0-2) /lpf Urine Mucus (None) /hpf
--- NOTE | 2022-08-27 13:44 | P.PN ---
Subjective Progress Note Date: 08/27/22 CHIEF COMPLAINT: Cecal volvulus with ischemic bowel HISTORY OF PRESENT ILLNESS: Patient is postop day #1 right colectomy for cecal volvulus with ischemic bowel. She's currently in the ICU due to severe hy pokalemia. Her potassium has been corrected. Her pain is controlled. She denies any nausea or vomiting. Afebrile. WBC is 12.5 hgb 12-11. platelets 304 sodium 135 potassium is up from 2.6-3.6 creatinine 1.14magnesium 1.7. Patient is non-MedSurg overflow Patient seen and examined with Dr. cole PHYSICAL EXAM: VITAL SIGNS: Reviewed. GENERAL: Well-developed in no acute distress. HEENT: No sclera icterus. Extraocular movements grossly intact. Moist buccal mucosa. Head is atraumatic, normocephalic. ABDOMEN: distended. tender at incision site. Incision site has a small area of oozing of blood at the distal aspect. Also has small area of bruising on the right side of the incision. NEUROLOGIC: Alert and oriented. Cranial nerves II through XII grossly intact. ASSESSMENT: 1. Cecal volvulus with ischemic bowel status post right colectomy 2. Hypokalemia 3. Hypomagnesemia PLAN: -Continue to replace electrolytes -Continue clear liquid diet -continue to monitor incision site -Continue supportive care -Continue pain management -DVT prophylaxis subcu heparin and GI prophylaxis Pepcid Physician Diamond Expert note has been reviewed by physician. Signing provider agrees with the documented findings, assessment, and plan of care. Objective - Vital Signs Vital signs: Vital Signs Temp 99.2 F 08/27/22 08:00 Pulse 85 08/27/22 12:00 Resp 76 H 08/27/22 12:00 BP 107/61 08/27/22 11:00 Pulse Ox 99 08/27/22 12:00 FiO2 Intake & Output 08/26/22 08/27/22 08/27/22 18:59 06:59 18:59 Intake Total 3150 950 Output Total 1100 285 Balance 0 665 Weight 43.091 kg 53.3 kg Intake: IV 3150 850 D5-0.45% NaCl with KCl 1250 750 20Meq/l 1,000 ml @ 125 mls/hr IV .Q8H [facility] Rx#: [id number] Potassium Chloride 20 meq 300 100 In Water For Injection 1 100ml.bag @ 50 mls/hr IVPB Q2H [facility] Rx#: [id number] Intake, IV Titration 100 Amount Magnesium Sulfate-D5w Pmx 100 1 gm In Dextrose/Water 1 100ml.bag @ 100 mls/hr IVPB Q1H [facility] Rx#: [id number] Output: Urine 1080 285 Estimated Blood Loss 20 Other: Voiding Method Indwelling Catheter Indwelling Catheter - Labs CBC & Chem 7: 08/27/22 05:55 08/27/22 05:55 Labs: Abnormal Lab Results - Last 24 Hours (Table) 08/26/22 08/26/22 08/26/22 Range/Units 15:40 16:08 16:08 WBC 14.7 H (3.8-10.6) k/uL RBC (3.80-5.40) m/uL Hgb (11.4-16.0) gm/dL Hct (34.0-46.0) % Neutrophils # 12.9 H (1.3-7.7) k/uL Lymphocytes # (1.0-4.8) k/uL Sodium 135 L (137-145) mmol/L Potassium 2.3 L* (3.5-5.1) mmol/L Creatinine 1.26 H (0.52-1.04) mg/dL Glucose 127 H (74-99) mg/dL POC Glucose (mg/dL) (70-110) mg/dL Calcium (8.4-10.2) mg/dL Total Bilirubin 1.6 H (0.2-1.3) mg/dL Urine Protein Trace H (Negative) Urine Blood Small H (Negative) Urine RBC 7 H (0-5) /hpf Urine Bacteria Rare H (None) /hpf Hyaline Casts 4 H (0-2) /lpf Urine Mucus Rare H (None) /hpf 08/26/22 08/26/22 08/26/22 Range/Units 21:45 21:45 21:51 WBC 11.5 H (3.8-10.6) k/uL RBC (3.80-5.40) m/uL Hgb (11.4-16.0) gm/dL Hct (34.0-46.0) % Neutrophils # 10.4 H (1.3-7.7) k/uL Lymphocytes # 0.5 L (1.0-4.8) k/uL Sodium 133 L (137-145) mmol/L Potassium 2.6 L* (3.5-5.1) mmol/L Creatinine 1.13 H (0.52-1.04) mg/dL Glucose 172 H (74-99) mg/dL POC Glucose (mg/dL) 173 H (70-110) mg/dL Calcium 8.1 L (8.4-10.2) mg/dL Total Bilirubin (0.2-1.3) mg/dL Urine Protein (Negative) Urine Blood (Negative) Urine RBC (0-5) /hpf Urine Bacteria (None) /hpf Hyaline Casts (0-2) /lpf Urine Mucus (None) /hpf 08/27/22 08/27/22 Range/Units 05:55 05:55 WBC 12.5 H (3.8-10.6) k/uL RBC 3.67 L (3.80-5.40) m/uL Hgb 11.0 L (11.4-16.0) gm/dL Hct 33.3 L (34.0-46.0) % Neutrophils # 11.1 H (1.3-7.7) k/uL Lymphocytes # 0.5 L (1.0-4.8) k/uL Sodium 135 L (137-145) mmol/L Potassium (3.5-5.1) mmol/L Creatinine 1.14 H (0.52-1.04) mg/dL Glucose 136 H (74-99) mg/dL POC Glucose (mg/dL) (70-110) mg/dL Calcium 7.7 L (8.4-10.2) mg/dL Total Bilirubin (0.2-1.3) mg/dL Urine Protein (Negative) Urine Blood (Negative) Urine RBC (0-5) /hpf Urine Bacteria (None) /hpf Hyaline Casts (0-2) /lpf Urine Mucus (None) /hpf
[2022-08-27] MEDS: FAMOTIDINE 20 MG TAB PO SCH (20:42)
[2022-08-28] MEDS: HYDROmorphone 1 MG/ML 1 ML SYRINGE IVP PRN ×4 (05:19→20:16)
[2022-08-28] MEDS: LEVOTHYROXINE 75 MCG TAB PO SCH (09:18)
[2022-08-28] MEDS: HEPARIN SODIUM,PORCINE/PF 5,000 UNIT/0.5 ML SYRINGE SQ SCH ×2 (09:18→16:20)
[2022-08-28] MEDS: ALVIMOPAN 12 MG CAPSULE PO SCH ×2 (09:18→20:19)
[2022-08-28] MEDS: D5-0.45% NACL WITH KCL 20MEQ/L 1,000 ML IV SCH ×2 (09:25→16:20)
[2022-08-28 09:47] LABS: HCT 30.4 % (37.2-46.3); HGB 9.7 g/dL (12.0-15.0); MCH 29.9 pg (27.0-32.0); MCHC 31.9 g/dL (32.0-37.0); MCV 93.8 fL (80.0-97.0); Mean Platelet Volume 10.3 fL (9.5-12.2); NRBC Per 100 WBC 0 /100 WBCS (0.0-0.0); Platelet Count 248 X 10*3/uL (140-440); RBC 3.24 X 10*6/uL (4.10-5.20); RDW 13.5 % (11.5-14.5); WBC 11.48 X 10*3/uL (4.50-10.00)
--- NOTE | 2022-08-28 10:14 | P.PN ---
Progress Note - Text Progress Note Date: 08/28/22 Patient is resting comfortably. She has some minimal colitis of pain. On exam vessels are still. Abdomen soft. Incisions clean and intact. Status post right colectomy for cecal wall. Patient will continue supportive care.
[2022-08-28 10:50] LABS: African American GFR (CKD) 65.2 (60.0-200.0); Albumin 3.1 g/dL (3.8-4.9); Albumin/Globulin Ratio 1.63 (1.60-3.17); Anion Gap 6.7 mmol/L (10.00-18.00); BUN/Creat Ratio 14.5 Ratio (12.00-20.00); Blood Urea Nitrogen 14.5 mg/dL (9.0-27.0); Calcium 8.4 mg/dL (8.7-10.3); Carbon Dioxide 25.3 mmol/L (20.0-27.5); Globulin 1.9 g/dL (1.6-3.3); Magnesium 2.1 mg/dL (1.5-2.4); Non-African American GFR(CKD) 56.2 (60.0-200.0); Phosphorus 2.3 mg/dL (2.4-5.1); Potassium 4.6 mmol/L (3.5-5.5); Total Bilirubin 0.8 mg/dL (0.30-1.20)
[2022-08-28 10:54] VITALS: BMI 18.9
--- NOTE | 2022-08-28 11:06 | P.PN ---
Subjective Progress Note Date: 08/28/22 Patient reports pain is controlled, no bowel movements yet, however, she is passing flatus. She has no complaints at this time. Gen: awake, alert, thin elderly woman HEENT: normocephalic, atraumatic, good hearing acuity, moist mucous membranes Resp: good air exchange, breathing comfortably with no accessory muscle use CVS: good distal perfusion x 4, GI: soft, NTTP, ND, incision site is clean, dry, intact : no SPT, no CVAT, cash catheter is present MSK: no pitting edema, no clubbing Neuro: non-focal, moving all extremities Psych: cooperative, euthymic mood Assessment/plan: Acute Cecal Volvulus s/p right colectomy - surgical management - pain control - IV fluids - entreg Acute blood loss anemia - follow CBC - no indication for transfusion CKD III, at baseline - follow BMP closely - Avoid additional nephrotoxic agents Hypokalemia, resolved - continue to monitor Chornic: Hypothyroidism- levothyroxine Dyslipidemia- resume lipitor once tolerating orals Anxiety- celexa once tolerating orals Thank you for allowing us to participate in the care of this pleasant patient. Do not hesitate to contact us with questions. Someone can be reached from the [facility] hospitalist group all hours of the day at [phone] or via perfect serve. Objective - Vital Signs Vital signs: Vital Signs Temp 98.2 F 08/28/22 04:56 Pulse 96 08/28/22 04:56 Resp 16 08/28/22 04:56 BP 119/68 08/28/22 04:56 Pulse Ox 99 08/28/22 04:56 FiO2 Intake & Output 08/27/22 08/28/22 08/28/22 18:59 06:59 18:59 Intake Total 950 1560 Output Total 835 2075 Balance 115 -515 Weight 53.3 kg Intake: IV 850 1200 D5-0.45% NaCl with KCl 750 1200 20Meq/l 1,000 ml @ 125 mls/hr IV .Q8H [facility] Rx#: [id number] Potassium Chloride 20 meq 100 In Water For Injection 1 100ml.bag @ 50 mls/hr IVPB Q2H [facility] Rx#: [id number] Intake, IV Titration 100 Amount Magnesium Sulfate-D5w Pmx 100 1 gm In Dextrose/Water 1 100ml.bag @ 100 mls/hr IVPB Q1H [facility] Rx#: [id number] Oral 360 Output: Urine 838 2075 Other: Voiding Method Indwelling Catheter Indwelling Catheter - Labs CBC & Chem 7: 08/28/22 05:15 08/28/22 05:15 Labs: Abnormal Lab Results - Last 24 Hours (Table) 08/28/22 08/28/22 Range/Units 05:15 05:15 WBC 11.48 H (4.50-10.00) X 10*3/uL RBC 3.24 L (4.10-5.20) X 10*6/uL Hgb 9.7 L (12.0-15.0) g/dL Hct 30.4 L (37.2-46.3) % MCHC 31.9 L (32.0-37.0) g/dL Anion Gap 6.70 L (10.00-18.00) mmol/L Est GFR (CKD-EPI)NonAf 56.2 L (60.0-200.0) Glucose 115 H (70-110) mg/dL Calcium 8.4 L (8.7-10.3) mg/dL Phosphorus 2.3 L (2.4-5.1) mg/dL Total Protein 5.0 L (6.2-8.2) g/dL Albumin 3.1 L (3.8-4.9) g/dL
--- NOTE | 2022-08-28 14:00 | P.PN ---
Subjective Progress Note Date: 08/28/22 72-year-old female who presents to the emergency department, on August 26, complaining of abdominal pain. The pain started 5 days ago when she was having a bowel movement. She has been having some nausea and vomiting. She called her primary care physician who recommended Metamucil. The abdominal pain got much more severe, so she came in to be evaluated. A computed tomography scan of the abdomen was performed, and was consistent with an acute cecal volvulus. The patient ended up going to the operating room yesterday, he had a right colectomy. Because of severe hypokalemia, she came back to the ICU. Currently, she is resting comfortably. She is postop day #1. She is on 2 L of oxygen. Sh e's getting dextrose with half-normal saline and 20 mg once a potassium at 125 mL an hour. This morning's potassium is 3.6. She has a history of chronically low potassium, hyperlipidemia, and hypothyroidism. White count 12.5, hemoglobin 11, hematocrit 33.3, and platelet count 304,000. Sodium 135, potassium 3.6, chlorides 104, CO2 26, BUN 13, creatinine 1.14. The chest x-ray from yesterday is reviewed. The patient is seen today 08/28/2022 in follow-up on the regular medical floor. She is currently resting quite comfortably in bed. Awake and alert in no acute distress. Maintaining O2 saturations in the 90s on 2 L/m per nasal cannula. His D5.45 normal saline running at 125 ML's per hour. Operative day #2 of right colectomy. Abdominal binder in place. Dry and intact. Pathology pending. White count 11.4. Hemoglobin 9.7. Sodium 136. Potassium 4.6. BUN 14. Creatinine 1.0. She is working well with the incentive spirometer. Heparin for DVT prophylaxis. She is tolerating a clear liquid diet. Objective - Vital Signs Vital signs: Vital Signs Temp 98.4 F 08/28/22 12:16 Pulse 99 08/28/22 12:16 Resp 18 08/28/22 12:16 BP 131/65 08/28/22 12:16 Pulse Ox 100 08/28/22 12:16 FiO2 Intake & Output 08/27/22 08/28/22 08/28/22 18:59 06:59 18:59 Intake Total 950 1560 Output Total 835 2075 Balance 115 -515 Weight 53.3 kg Intake: IV 850 1200 D5-0.45% NaCl with KCl 750 1200 20Meq/l 1,000 ml @ 125 mls/hr IV .Q8H [facility] Rx#: [id number] Potassium Chloride 20 meq 100 In Water For Injection 1 100ml.bag @ 50 mls/hr IVPB Q2H [facility] Rx#: [id number] Intake, IV Titration 100 Amount Magnesium Sulfate-D5w Pmx 100 1 gm In Dextrose/Water 1 100ml.bag @ 100 mls/hr IVPB Q1H [facility] Rx#: [id number] Oral 360 Output: Urine 835 2075 Other: Voiding Method Indwelling Catheter Indwelling Catheter Indwelling Catheter - Exam GENERAL EXAM: Alert, active, comfortable in no apparent distress. HEAD: Normocephalic. EYES: Normal reaction of pupils, equal size. NOSE: Clear with pink turbinates. THROAT: No erythema or exudates. NECK: No masses, no JVD. CHEST: No chest wall deformity. LUNGS: Equal air entry with no crackles, wheeze, rhonchi or dullness. CVS: S1 and S2 normal with no audible murmur, regular rhythm. ABDOMEN: Abdominal binder in place. Dressing dry and intact. No guarding or rigidity. SPINE: No scoliosis or deformity SKIN: No rashes CENTRAL NERVOUS SYSTEM: No focal deficits, tone is normal in all 4 extremities. EXTREMITIES: There is no peripheral edema. No clubbing, no cyanosis. Pe ripheral pulses are intact. - Labs CBC & Chem 7: 08/28/22 05:15 08/28/22 05:15 Labs: Abnormal Lab Results - Last 24 Hours (Table) 08/28/22 08/28/22 Range/Units 05:15 05:15 WBC 11.48 H (4.50-10.00) X 10*3/uL RBC 3.24 L (4.10-5.20) X 10*6/uL Hgb 9.7 L (12.0-15.0) g/dL Hct 30.4 L (37.2-46.3) % MCHC 31.9 L (32.0-37.0) g/dL Anion Gap 6.70 L (10.00-18.00) mmol/L Est GFR (CKD-EPI)NonAf 56.2 L (60.0-200.0) Glucose 115 H (70-110) mg/dL Calcium 8.4 L (8.7-10.3) mg/dL Phosphorus 2.3 L (2.4-5.1) mg/dL Total Protein 5.0 L (6.2-8.2) g/dL Albumin 3.1 L (3.8-4.9) g/dL Assessment and Plan Assessment: Postop day #2, status post right colectomy for acute cecal volvulus, and incisional hernia repair. History of hyperlipidemia. History of hypothyroidism. History of chronically low potassium. Plan: The patient was seen and evaluated Labs, medications reviewed Encouraged increased use of the incentive spirometer Titrate the FiO2 as tolerated Increase her activity as tolerated Advance diet per surgical services We will continue to follow I have personally seen and examined the patient, performed the documentation and the assessment and plan as written. Number of minutes spent on the visit: 10.
[2022-08-28] MEDS: FAMOTIDINE 20 MG TAB PO SCH (20:19)
[2022-08-29] MEDS: HYDROmorphone 1 MG/ML 1 ML SYRINGE IVP PRN ×5 (00:11→23:30)
[2022-08-29] MEDS: D5-0.45% NACL WITH KCL 20MEQ/L 1,000 ML IV SCH ×4 (00:12→21:06)
[2022-08-29] MEDS: HEPARIN SODIUM,PORCINE/PF 5,000 UNIT/0.5 ML SYRINGE SQ SCH ×4 (00:16→23:21)
[2022-08-29] MEDS: LEVOTHYROXINE 75 MCG TAB PO SCH (07:56)
[2022-08-29] MEDS: ALVIMOPAN 12 MG CAPSULE PO SCH ×2 (07:57→21:06)
[2022-08-29] MEDS: HYDROcodone/APAP 5-325MG 1 EACH TAB PO PRN ×2 (12:02→16:09)
--- NOTE | 2022-08-29 12:44 | P.PN ---
Progress Note - Text Progress Note Date: 08/29/22 Patient's up in the chair. She states she has some incisional pain. She has not ambulated yet. On exam vital signs are stable. Abdomen soft. Incisions clean dry tach. Patient's encouraged to ambulate and use her incentive is probably. She will have her diet slowly advanced once her bowel function returns.
--- NOTE | 2022-08-29 13:10 | P.PN ---
Subjective Progress Note Date: 08/29/22 Seen sitting in chair. Reports pain is only controlled for short amounts of time with IV pain meds. Has tolerated CLD. Passing flatus, no BM. Gen: awake, alert, thin elderly woman HEENT: normocephalic, atraumatic, good hearing acuity, moist mucous membranes Resp: good air exchange, breathing comfortably with no accessory muscle use CVS: good distal perfusion x 4, GI: soft, NTTP, ND, incision site is clean, dry, intact : no SPT, no CVAT, cash catheter is present MSK: no pitting edema, no clubbing Neuro: non-focal, moving all extremities Psych: cooperative, euthymic mood Assessment/plan: Acute Cecal Volvulus s/p right colectomy - surgical management - pain control, added norco - IV fluids - entreg Acute blood loss anemia - follow CBC - no indication for transfusion CKD III, at baseline - follow BMP closely - Avoid additional nephrotoxic agents Hypokalemia, resolved - continue to monitor Chornic: Hypothyroidism- levothyroxine Dyslipidemia- resume lipitor once tolerating orals Anxiety- celexa once tolerating orals Thank you for allowing us to participate in the care of this pleasant patient. Do not hesitate to contact us with questions. Someone can be reached from the [facility] hospitalist group all hours of the day at [phone] or via perfect serve. Objective - Vital Signs Vital signs: Vital Signs Temp 98.9 F 08/29/22 12:05 Pulse 96 08/29/22 12:05 Resp 19 08/29/22 12:05 BP 135/78 08/29/22 12:05 Pulse Ox 99 08/29/22 12:05 FiO2 Intake & Output 08/28/22 08/29/22 08/29/22 18:59 06:59 18:59 Intake Total 1860 Output Total 2800 1400 Balance -2800 460 Weight 53.3 kg Intake: IV 1500 D5-0.45% NaCl with KCl 1500 20Meq/l 1,000 ml @ 125 mls/hr IV .Q8H [facility] Rx#: [id number] Oral 360 Output: Urine 2800 1400 Other: Voiding Method Indwelling Catheter Indwelling Catheter Indwelling Catheter - Labs CBC & Chem 7: 08/28/22 05:15 08/28/22 05:15
[2022-08-29] MEDS: ONDANSETRON 4 MG/2 ML VIAL IVP PRN ×2 (16:07→23:21)
--- NOTE | 2022-08-29 17:42 | P.PN ---
Subjective Progress Note Date: 08/29/22 Principal diagnosis: Cecal volvulus. 72-year-old female who presents to the emergency department, on August 26, complaining of abdominal pain. The pain started 5 days ago when she was having a bowel movement. She has been having some nausea and vomiting. She called her primary care physician who recommended Metamucil. The abdominal pain got much more severe, so she came in to be evaluated. A computed tomography scan of the abdomen was performed, and was consistent with an acute cecal volvulus. The patient ended up going to the operating room yesterday, he had a right colectomy. Because of severe hypokalemia, she came back to the ICU. Currently, she is resting comfortably. She is postop day #1. She is on 2 L of oxygen. She's getting dextrose with half-normal saline and 20 mg once a potassium at 125 mL an hour. This morning's potassium is 3.6. She has a history of chronically low potassium, hyperlipidemia, and hypothyroidism. White count 12.5, hemoglobin 11, hematocrit 33.3, and platelet count 304,000. Sodium 135, potassium 3.6, chlorides 104, CO2 26, BUN 13, creatinine 1.14. The chest x-ray from yesterday is reviewed. The patient is seen today 08/28/2022 in follow-up on the regular medical floor. She is currently resting quite comfortably in bed. Awake and alert in no acute distress. Maintaining O2 saturations in the 90s on 2 L/m per nasal cannula. His D5.45 normal saline running at 125 ML's per hour. Operative day #2 of right colectomy. Abdominal binder in place. Dry and intact. Pathology pending. White count 11.4. Hemoglobin 9.7. Sodium 136. Potassium 4.6. BUN 14. Creatinine 1.0. She is working well with the incentive spirometer. Heparin for DVT prophylaxis. She is tolerating a clear liquid diet. Progress note dated 08/29/2022. The patient is seen today in room 523. She is sitting in the bedside chair next to her bed. She is on room air. The patient has a IV of dextrose and half normal saline with 20 mg a potassium at 125 mL an hour. The patient feels generally well. She does have pain at the surgical site. She would grade it as a 5 out of 10. She denies any respiratory issues. No new labs today. Labs from August 28 are reviewed. Objective - Vital Signs Vital signs: Vital Signs Temp 98.9 F 08/29/22 12:05 Pulse 96 08/29/22 12:05 Resp 19 08/29/22 12:05 BP 135/78 08/29/22 12:05 Pulse Ox 99 08/29/22 12:05 FiO2 Intake & Output 08/28/22 08/29/22 08/29/22 18:59 06:59 18:59 Intake Total 1860 Output Total 2800 1400 Balance -2800 460 Weight 53.3 kg Intake: IV 1500 D5-0.45% NaCl with KCl 1500 20Meq/l 1,000 ml @ 125 mls/hr IV .Q8H [facility] Rx#: [id number] Oral 360 Output: Urine 2800 1400 Other: Voiding Method Indwelling Catheter Indwelling Catheter Indwelling Catheter - Exam No acute distress, oriented 3. Not on any supplemental oxygen. HEENT examination is grossly unremarkable. Neck supple. Full range of motion. No adenopathy thyromegaly or neck vein distention. Cardiovascular examination reveals regular rhythm rate. S1-S2 normal. No S3 or S4. No discernible murmur noted. Heart rate 88 bpm. Lungs reveal clear breath sounds. Breath sounds are equal bilaterally. No adventitious lung sounds including wheezes rhonchi or crackles. Room air saturation is 99%. Abdomen soft with minimal bowel sounds. Tenderness at the surgical site. Extremities are intact. No cyanosis clubbing or edema. Skin is without rash or lesion. Neurologic examination is brief but nonfocal. - Labs CBC & Chem 7: 08/28/22 05:15 08/28/22 05:15 Assessment and Plan Assessment: Postop day #3, status post right colectomy for acute cecal volvulus, and incisional hernia repair. History of hyperlipidemia. History of hypothyroidism. Her chronically low potassium. Plan: Plan dated 08/27/2022. The patient could be transferred out of the intensive care unit. Her potassium is now 3.6. The patient is receiving O2 at 2 L. Labs, x-rays, medications are all reviewed. The patient did well with surgery. She is postop day #1. She c ontinues on D5.45, with 20 meq of potassium at 125 mL an hour. Plan dated 08/29/2022. The patient is postop day #3. She's getting an IV with potassium. No new labs today. We continue to encourage her to deep breathe, cough, and clear any secretions. We encourage her to use the incentive spirometer, every hour while awake. We will continue to follow make recommendations were appropriate. No additional recommendations are made at this time. No new labs today. Time with Patient: Less than 30
[2022-08-29] MEDS: FAMOTIDINE 20 MG TAB PO SCH (21:06)
[2022-08-30] MEDS: HYDROmorphone 1 MG/ML 1 ML SYRINGE IVP PRN (05:11)
[2022-08-30] MEDS: D5-0.45% NACL WITH KCL 20MEQ/L 1,000 ML IV SCH ×3 (06:11→19:15)
--- NOTE | 2022-08-30 09:09 | P.PN ---
Subjective Progress Note Date: 08/30/22 Seen sitting in chair. Pain control is improved but still not ideal with IV meds only. Did not tolerate norco due to nausea. Gen: awake, alert, thin elderly woman HEENT: normocephalic, atraumatic, good hearing acuity, moist mucous membranes Resp: good air exchange, breathing comfortably with no accessory muscle use CVS: good distal perfusion x 4, GI: soft, NTTP, ND, incision site is clean, dry, intact : no SPT, no CVAT, cash catheter is present MSK: no pitting edema, no clubbing Neuro: non-focal, moving all extremities Psych: cooperative, euthymic mood Assessment/plan: Acute Cecal Volvulus s/p right colectomy - surgical management - pain control, added tramadol - IV fluids - entreg Acute blood loss anemia - follow CBC - no indication for transfusion CKD III, at baseline - follow BMP closely - Avoid additional nephrotoxic agents Hypokalemia, resolved - continue to monitor Chornic: Hypothyroidism- levothyroxine Dyslipidemia- resume lipitor once tolerating orals Anxiety- celexa once tolerating orals Thank you for allowing us to participate in the care of this pleasant patient. Do not hesitate to contact us with questions. Someone can be reached from the [facility] hospitalist group all hours of the day at [phone] or via perfect serve. Objective - Vital Signs Vital signs: Vital Signs Temp 98.7 F 08/30/22 04:37 Pulse 83 08/30/22 04:37 Resp 14 08/30/22 04:37 BP 128/65 08/30/22 04:37 Pulse Ox 97 08/30/22 04:37 FiO2 Intake & Output 08/29/22 08/30/22 08/30/22 18:59 06:59 18:59 Intake Total 1500 Balance 1500 Intake: IV 1500 D5-0.45% NaCl with KCl 1500 20Meq/l 1,000 ml @ 125 mls/hr IV .Q8H [facility] Rx#: [id number] Other: Voiding Method Indwelling Catheter Toilet # Voids 1 - Labs CBC & Chem 7: 08/28/22 05:15 08/28/22 05:15
[2022-08-30] MEDS: ALVIMOPAN 12 MG CAPSULE PO SCH ×2 (09:26→22:03)
[2022-08-30] MEDS: LEVOTHYROXINE 75 MCG TAB PO SCH (09:26)
[2022-08-30] MEDS: HEPARIN SODIUM,PORCINE/PF 5,000 UNIT/0.5 ML SYRINGE SQ SCH ×3 (09:26→23:58)
[2022-08-30] MEDS: ONDANSETRON 4 MG/2 ML VIAL IVP PRN (09:30)
[2022-08-30] MEDS: traMADol 50 MG TAB PO PRN ×3 (09:31→22:04)
[2022-08-30 09:40] LABS: Basophils % (A) 0 %; Eosinophils # (A) 0.1 k/uL (0-0.7); Eosinophils % (A) 1 %; HCT 31.6 % (34.0-46.0); HGB 10.2 gm/dL (11.4-16.0); Lymphocytes # (A) 0.7 k/uL (1.0-4.8); Lymphocytes % (A) 8 %; MCH 30.2 pg (25.0-35.0); MCHC 32.3 g/dL (31.0-37.0); MCV 93.2 fL (80.0-100.0); Mean Platelet Volume 8.3; Monocytes # (A) 0.4 k/uL (0-1.0); Monocytes % (A) 5 %; Neutrophils # (A) 7.1 k/uL (1.3-7.7); Neutrophils % (A) 83 %; Platelet Count 290 k/uL (150-450); RBC 3.39 m/uL (3.80-5.40); RDW 12.9 % (11.5-15.5); WBC 8.6 k/uL (3.8-10.6)
[2022-08-30 10:06] LABS: African American GFR (CKD) 66 (>60 ml/min/1.73 sqM); Anion Gap 4 mmol/L; Blood Urea Nitrogen 10 mg/dL (7-17); Calcium 8.1 mg/dL (8.4-10.2); Carbon Dioxide 29 mmol/L (22-30); Chloride 99 mmol/L (98-107); Glucose 137 mg/dL (74-99); Non-African American GFR(CKD) 57 (>60 ml/min/1.73 sqM); Sodium 132 mmol/L (137-145)
[2022-08-30 10:27] LABS: Potassium 4.3 mmol/L (3.5-5.1)
[2022-08-30] MEDS ORDERED: ONDANSETRON 4 MG/2 ML VIAL IVP PRN (11:41)
--- NOTE | 2022-08-30 11:42 | P.PN ---
Subjective Progress Note Date: 08/30/22 CHIEF COMPLAINT: Cecal volvulus with ischemic bowel HISTORY OF PRESENT ILLNESS: Patient is postop day #4 right colectomy for cecal volvulus with ischemic bowel. Patient transferred out of the ICU over the weekend. She's currently on a regular medical floor. She is having flatus. She denies any bowel movements. She vomited 2 yesterday. Her activity level is decreased. Her abdominal pain is mostly at the incision site but controlled. Afebrile. WBC has improved from 11.48- 8.6 hemoglobin 10.2 platelets 290 sodium is 132 potassium 4.3 creatinine 0.99 magnesium 2.1 medicines service has switched patient to Ultram instead of [place]. Patient reports that medications were making her ill yesterday. Patient seen and examined with Dr. cole PHYSICAL EXAM: VITAL SIGNS: Reviewed. GENERAL: Well-developed in no acute distress. HEENT: No sclera icterus. Extraocular movements grossly intact. Moist buccal mucosa. Head is atraumatic, normocephalic. ABDOMEN: soft. Nondistended. Mild tenderness around incision site. Incision site is clean dry and intact. No further bleeding from incision site noted NEUROLOGIC: Alert and oriented. Cranial nerves II through XII grossly intact. ASSESSMENT: 1. Cecal volvulus with ischemic bowel status post right colectomy 2. Hypokalemia resolved 3. Hypomagnesemia resolved PLAN: -Continue clear liquid diet -Decreased IV fluids 75 mL per hour -Encouraged patient to increase activity level -Continue supportive care -Continue pain management -Agree with PT OT consult -DVT prophylaxis subcu heparin and GI prophylaxis Pepcid Physician Oncology Patient Navigator note has been reviewed by physician. Signing provider agrees with the documented findings, assessment, and plan of care. Objective - Vital Signs Vital signs: Vital Signs Temp 98.7 F 08/30/22 04:37 Pulse 83 08/30/22 04:37 Resp 14 08/30/22 04:37 BP 128/65 08/30/22 04:37 Pulse Ox 95 08/30/22 09:17 FiO2 21 08/30/22 09:17 Intake & Output 08/29/22 08/30/22 08/30/22 18:59 06:59 18:59 Intake Total 1500 Balance 1500 Intake: IV 1500 D5-0.45% NaCl with KCl 1500 20Meq/l 1,000 ml @ 125 mls/hr IV .Q8H [facility] Rx#: [id number] Other: Voiding Method Indwelling Catheter Toilet # Voids 1 - Labs CBC & Chem 7: 08/30/22 09:07 08/30/22 09:07 Labs: Abnormal Lab Results - Last 24 Hours (Table) 08/30/22 08/30/22 Range/Units 09:07 09:07 RBC 3.39 L (3.80-5.40) m/uL Hgb 10.2 L (11.4-16.0) gm/dL Hct 31.6 L (34.0-46.0) % Lymphocytes # 0.7 L (1.0-4.8) k/uL Sodium 132 L (137-145) mmol/L Glucose 137 H (74-99) mg/dL Calcium 8.1 L (8.4-10.2) mg/dL
--- NOTE | 2022-08-30 16:41 | P.PN ---
Subjective Progress Note Date: 08/30/22 72-year-old female who presents to the emergency department, on August 26, complaining of abdominal pain. The pain started 5 days ago when she was having a bowel movement. She has been having some nausea and vomiting. She called her primary care physician who recommended Metamucil. The abdominal pain got much more severe, so she came in to be evaluated. A computed tomography scan of the abdomen was performed, and was consistent with an acute cecal volvulus. The patient ended up going to the operating room yesterday, he had a right colectomy. Because of severe hypokalemia, she came back to the ICU. Currently, she is resting comfortably. She is postop day #1. She is on 2 L of oxygen. S he's getting dextrose with half-normal saline and 20 mg once a potassium at 125 mL an hour. This morning's potassium is 3.6. She has a history of chronically low potassium, hyperlipidemia, and hypothyroidism. White count 12.5, hemoglobin 11, hematocrit 33.3, and platelet count 304,000. Sodium 135, potassium 3.6, chlorides 104, CO2 26, BUN 13, creatinine 1.14. The chest x-ray from yesterday is reviewed. The patient is seen today 08/28/2022 in follow-up on the regular medical floor. She is currently resting quite comfortably in bed. Awake and alert in no acute distress. Maintaining O2 saturations in the 90s on 2 L/m per nasal cannula. His D5.45 normal saline running at 125 ML's per hour. Operative day #2 of right colectomy. Abdominal binder in place. Dry and intact. Pathology pending. White count 11.4. Hemoglobin 9.7. Sodium 136. Potassium 4.6. BUN 14. Creatinine 1.0. She is working well with the incentive spirometer. Heparin for DVT prophylaxis. She is tolerating a clear liquid diet. Progress note dated 08/29/2022. The patient is seen today in room 523. She is sitting in the bedside chair next to her bed. She is on room air. The patient has a IV of dextrose and half normal saline with 20 mg a potassium at 125 mL an hour. The patient feels generally well. She does have pain at the surgical site. She would grade it as a 5 out of 10. She denies any respiratory issues. No new labs today. Labs from August 28 are reviewed. 08/30/2022, the patient is postop day #4. Doing well. No specific complaints. Tolerating diet. No nausea vomiting chest pain or shortness of breath. Surgical wound site is dry clean and intact. No other significant events overnight. The patient is using the incentive spirometer. The white 219. BUN is 10 creatinine 0.9 sodium is 132. Objective - Vital Signs Vital signs: Vital Signs Temp 98.9 F 08/30/22 13:00 Pulse 79 08/30/22 13:00 Resp 16 08/30/22 13:00 BP 134/64 08/30/22 13:00 Pulse Ox 95 08/30/22 13:00 FiO2 21 08/30/22 09:17 Intake & Output 08/29/22 08/30/22 08/30/22 18:59 06:59 18:59 Intake Total 1500 Balance 1500 Weight 53.3 kg Intake: IV 1500 D5-0.45% NaCl with KCl 1500 20Meq/l 1,000 ml @ 125 mls/hr IV .Q8H [facility] Rx#: [id number] Other: Voiding Method Indwelling Catheter Toilet # Voids 1 - Exam No acute distress, oriented 3. Not on any supplemental oxygen. HEENT examination is grossly unremarkable. Neck supple. Full range of motion. No adenopathy thyromegaly or neck vein distention. Cardiovascular examination reveals regular rhythm rate. S1-S2 normal. No S3 or S4. No discernible murmur noted. Heart rate 88 bpm. Lungs reveal clear breath sounds. Breath sounds are equal bilaterally. No adventitious lung sounds including wheezes rhonchi or crackles. Room air saturation is 99%. Abdomen soft with minimal bowel sounds. Tenderness at the surgical site. Extremities are intact. No cyanosis clubbing or edema. Skin is without rash or lesion. Neurologic examination is brief but nonfocal. - Labs CBC & Chem 7: 08/30/22 09:07 08/30/22 09:07 Labs: Abnormal Lab Results - Last 24 Hours (Table) 08/30/22 08/30/22 Range/Units 09:07 09:07 RBC 3.39 L (3.80-5.40) m/uL Hgb 10.2 L (11.4-16.0) gm/dL Hct 31.6 L (34.0-46.0) % Lymphocytes # 0.7 L (1.0-4.8) k/uL Sodium 132 L (137-145) mmol/L Glucose 137 H (74-99) mg/dL Calcium 8.1 L (8.4-10.2) mg/dL Assessment and Plan Plan: Postop day #4, status post right colectomy for acute cecal volvulus, and incisional hernia repair. History of hyperlipidemia. History of hypothyroidism. Her chronically low potassium. Plan: clinically stable, no active pulmonary or critical care issue and we'll going to sign off the case and see her only on an as-needed basis.continue using the incentive spirometer. Continue supportive care. Pain management is adequate for now.
[2022-08-30] MEDS: FAMOTIDINE 20 MG TAB PO SCH (22:03)
[2022-08-31] MEDS: traMADol 50 MG TAB PO PRN ×2 (04:27→10:02)
[2022-08-31] MEDS: LEVOTHYROXINE 75 MCG TAB PO SCH (07:50)
[2022-08-31] MEDS: HEPARIN SODIUM,PORCINE/PF 5,000 UNIT/0.5 ML SYRINGE SQ SCH (07:50)
[2022-08-31] MEDS: ALVIMOPAN 12 MG CAPSULE PO SCH (07:51)
--- NOTE | 2022-08-31 09:11 | CDI ---
Documentation Clarification Form Date: 08/31/2022 08:53:54 AM From: Flores Vergara RN CCDS Admit Date: 08/26/2022 07:06:00 PM Patient Name: Nata Barrow Visit Number: [id number] Discharge Date: ATTENTION: The Clinical Documentation Specialists (CDI) and [facility] Coding Staff appreciate your assistance in clarifying documentation. Please respond to the clarification below the line at the bottom and electronically sign. The CDI & [facility] Coding staff will review the response and follow-up if needed. Please note: Queries are made part of the Legal Health Record. If you have any questions, please contact the author of this message via ITS. Dr. Jami Gilmore The Registered Dietitian assessment on 08/30 indicates this patient is underweight. Based on this information and the findings below, is there an additional diagnosis that is clinically appropriate for this patient? History/Risk Factors: 72-year-old female presents to [facility] with nausea and vomiting found to have a dilated cecum and cecal volvulus. Patient had colectomy surgery secondary to Cecal volvulus. Medical History: Chronic low potassium, Hypothyroidism and hyperlipidemia. Medicine consult, 08/27. Clinical Indicators: RD Consult Assessment: Current BMI: 18.9kg Height 5ft 6in Weight 53.3 Underweight, Inadequate energy intake. Estimated Nutritional Needs: Needs in Kcals: Current weight used; Energy formula estimated nutritional needs 30- 35 Kcals/Kg; Energy needs 1599 1866 Kcal Needs in Protein: Current weight used; Estimated Protein range 1.2-1.3 gram/kg. Estimated protein Needs: 64-69 grams/day Diagnostic statement: recent gastric surgery; clear liquids x 2 days; post op day #3 of right colectomy. Not tolerating po diet. Loss of subcutaneous fat: Treatment: Monitor PO intake of supplement and tolerance to advance diet Dietary Consult: see above Supplements: Ensure clear TID, apple preferred. Low fiber diet. Lab monitoring: Daily Chemistry Is there an additional diagnosis that is clinically appropriate for this patient? [ ] Mild Protein-Calorie Malnutrition [x] Moderate Protein-Calorie Malnutrition [ ] Other condition, please specify [ ] Unable to Determine (Template Last Revised: December 2020) MTDD
[2022-08-31] MEDS: D5-0.45% NACL WITH KCL 20MEQ/L 1,000 ML IV SCH (10:03)
--- NOTE | 2022-08-31 10:19 | P.PN ---
Subjective Progress Note Date: 08/31/22 Patient is up and ambulatory now. Pain is well controlled. Tolerating diet, had BM. Medically cleared for discharge. Gen: awake, alert, thin elderly woman HEENT: normocephalic, atraumatic, good hearing acuity, moist mucous membranes Resp: good air exchange, breathing comfortably with no accessory muscle use CVS: good distal perfusion x 4, GI: soft, NTTP, ND, incision site is clean, dry, intact : no SPT, no CVAT, cash catheter is present MSK: no pitting edema, no clubbing Neuro: non-focal, moving all extremities Psych: cooperative, euthymic mood Assessment/plan: Acute Cecal Volvulus s/p right colectomy - surgical management - pain control, added tramadol - IV fluids - entreg Acute blood loss anemia - follow CBC - no indication for transfusion CKD III, at baseline - follow BMP closely - Avoid additional nephrotoxic agents Hypokalemia, resolved - continue to monitor Chornic: Hypothyroidism- levothyroxine Dyslipidemia- resume lipitor once tolerating orals Anxiety- celexa once tolerating orals Thank you for allowing us to participate in the care of this pleasant patient. Do not hesitate to contact us with questions. Someone can be reached from the [facility] hospitalist group all hours of the day at [phone] or via perfect serve. Objective - Vital Signs Vital signs: Vital Signs Temp 98.5 F 08/31/22 04:39 Pulse 71 08/31/22 04:39 Resp 14 08/31/22 04:39 BP 145/70 08/31/22 04:39 Pulse Ox 96 08/31/22 04:39 FiO2 21 08/30/22 09:17 Intake & Output 08/30/22 08/31/22 08/31/22 18:59 06:59 18:59 Intake Total 900 120 Balance 900 120 Weight 53.3 kg Intake: IV 900 D5-0.45% NaCl with KCl 900 20Meq/l 1,000 ml @ 75 mls /hr IV .[id number] [facility] Rx#: [id number] Oral 120 Other: Voiding Method Toilet # Voids 4 2 - Labs CBC & Chem 7: 08/30/22 09:07 08/30/22 09:07
[2022-08-31 11:53] VITALS: BP 153/81; PULSE 79; RESP 17; TEMP 98.1
--- NOTE | 2022-08-31 12:24 | P.DS ---
Providers Date of admission: 08/26/22 19:06 Expected date of discharge: 08/31/22 Attending physician: Win Wright Consults: 08/26/22 20:15 Consult Physician Routine Consulting Provider: Rom Taveras Consult Reason/Comments: ICU management Do you want consulting provider notified?: Yes 08/26/22 20:17 Consult Physician Routine Consulting Provider: Breanna Posey Consult Reason/Comments: Medical management Do you want consulting provider notified?: Yes [facility]: Discharge diagnosis 1. Cecal volvulus with ischemic bowel status post right colectomy 2. Hypokalemia resolved 3. Hypomagnesemia resolved Hospital course This is a 72-year-old female who presented to the hospital with complaints of abdominal pain with nausea and vomiting for 3 days. In the emergency room she was found to have an acute cecal volvulus and a massive dilated cecum. Patient is status post right colectomy. Her pain is controlled. She is having bowel movements. She is tolerating diet. She's afebrile. She is up and ambulating. She is stable for discharge. Please refer to chart for any further details. Physician Locomotive Crane Engineer note has been reviewed by physician. Signing provider agrees with the documented findings, assessment, and plan of care. Patient Condition at Discharge: Stable Plan - Discharge Summary Discharge Rx Participant: No New Discharge Prescriptions: New traMADol HCl [Ultram] 50 mg PO Q6HR PRN 3 Days #12 tab PRN Reason: Pain Continue Levothyroxine Sodium [Synthroid] 75 mcg PO AC-BRKFST Atorvastatin Calcium 40 mg PO DAILY Potassium Chloride ER [K-Dur 20] 40 meq PO DAILY Citalopram Hydrobromide [CeleXA] 20 mg PO DAILY Discharge Medication List Atorvastatin Calcium 40 mg PO DAILY 08/26/22 [History] Citalopram Hydrobromide [CeleXA] 20 mg PO DAILY 08/26/22 [History] Levothyroxine Sodium [Synthroid] 75 mcg PO AC-BRKFST 08/26/22 [History] Potassium Chloride ER [K-Dur 20] 40 meq PO DAILY 08/26/22 [History] traMADol HCl [Ultram] 50 mg PO Q6HR PRN 3 Days #12 tab 08/31/22 [Rx] Follow up Appointment(s)/Referral(s): Tucker Truong DO [Primary Care Provider] - 1-2 days Win Wright MD [STAFF PHYSICIAN] - 1 Week Activity/Diet/Wound Care/Special Instructions: No driving while taking Ultram No lifting over 10 pounds Shower daily. No soaking or tub baths for 2 weeks Very light activity until you are reevaluated at your follow up appointment with your surgeon Continue full liquid diet for the next 24-48 hours and advance diet as tolerated Discharge Disposition: HOME SELF-CARE
--- NOTE | 2022-09-09 13:02 | CDI ---
Documentation Clarification Form Date: 09/09/2022 12:50:48 PM From: Jada Flaherty Phone: Admit Date: 08/26/2022 07:06:00 PM Patient Name: Nata Barrow Visit Number: [id number] Discharge Date: 08/31/2022 01:15:00 PM ATTENTION: The Clinical Documentation Specialists (CDI) and [facility] Coding Staff appreciate your assistance in clarifying documentation. Please respond to the clarification below the line at the bottom and electronically sign. The CDI & [facility] Coding staff will review the response and follow-up if needed. Please note: Queries are made part of the Legal Health Record. If you have any questions, please contact the author of this message via ITS. Dr. Win Wright The final diagnosis of the pathology report states: Benign small bowel and colonic mucosa with early acute ischemic colitis, mural atrophy and hemorrhage consistent with clinical volvulus. Mucosal resection margins viable with early acute ischemic colitis involving the distal resection margin. B. OMENTUM: Benign mesothelium lined fibroadipose tissue with chronic inflammation consistent with omentum. Coding guidelines do not allow coding professionals to code based on pathology results; therefore, clarification is requested. History/risk factors: 72yo F, Cecal volvulus, ischemic bowel, Moderate PCM, HLD, CKD3, anxiety, incarcerated omentum, incisional hernia related right subcostal incision Clinical Indicators: acute cecal volvulus and a massive dilated cecum Treatment: Right colectomy Please clarify if you agree with the pathology report diagnosis of acute ischemic colitis: [ xx ] Yes [ ] No [ ] Other (please specify) [ ] Unable to determine (Template Last Revised: December 2020) MTDD
== END 2022-08-31 13:15 | disposition home or self-care (01) | DRG 329 ==
LOC: EC 14:15 → 4SSUR 19:06 → 2SICU 20:01 → 5NMEDONC 08-27 15:38
PROVIDERS: ADMIT Surgery; ATTEND Surgery
PROC: 0DTF0ZZ Resection of Right Large Intestine, Open Approach (ICD-10-PCS; principal; 2022-08-26 18:26)
PROC: 0WQF0ZZ Repair Abdominal Wall, Open Approach (ICD-10-PCS; 2022-08-26 18:26)
DX: K56.2 Volvulus (principal); K55.039 Acute (reversible) ischemia of large intestine, extent unspecified; E44.0 Moderate protein-calorie malnutrition; D62 Acute posthemorrhagic anemia; Z68.1 Body mass index [BMI] 19.9 or less, adult; E03.9 Hypothyroidism, unspecified; F32.A Depression, unspecified; N18.30 Chronic kidney disease, stage 3 unspecified; E87.6 Hypokalemia; E78.5 Hyperlipidemia, unspecified; F41.9 Anxiety disorder, unspecified; K43.2 Incisional hernia without obstruction or gangrene; E83.42 Hypomagnesemia; Z79.899 Other long term (current) drug therapy; Z79.890 Hormone replacement therapy; Z28.310 Unvaccinated for COVID-19
CPT/HCPCS: 36415; 71045; 74177; 80048; 80053; 81001; 82150; 83690; 83735; 84100; 84132; 85025; 85027; 88305; 88307; 93005; 94760; 96374; 99291

== ENCOUNTER → 2023-08-19 | Outpatient (CLI) | payer MEDICARE ==
--- NOTE | 2023-08-19 13:22 | US ---
EXAMINATION TYPE: US kidneys/renal and bladder DATE OF EXAM: 08/19/2023 COMPARISON: 11/14/2017 CLINICAL INDICATION: Female, 73 years old with history of N18.32 CHRONIC KIDNEY DISEASE, STAGE 3B; CK D EXAM MEASUREMENTS: Right Kidney: 8.0 x 3.7 x 4.4 cm Left Kidney: 9.7 x 4.0 x 3.5 cm Right Kidney: No hydronephrosis or masses seen Left Kidney: Sup/ lat anechoic area measuring 1.2 x 1.0 x 1.3 cm. Bladder: wnl Bilateral Jets seen: Yes There is no evidence for hydronephrosis at this point in time. No nephrolithiasis is seen. Cortical medullary differentiation is maintained. No solid masses are identified. Left renal cyst identified . The urinary bladder is anechoic. Bilateral ureteral jets are seen. IMPRESSION: 1. No hydronephrosis or nephrolithiasis. 2. LEFT renal cyst.
== END | disposition home or self-care (01) ==
LOC: RADUSWWP 12:17
PROVIDERS: ATTEND Family Medicine
DX: N18.32 Chronic kidney disease, stage 3b (principal); N28.1 Cyst of kidney, acquired
CPT/HCPCS: 76770

== ENCOUNTER → 2024-01-30 | Outpatient (CLI) | payer MEDICARE ==
--- NOTE | 2024-01-30 17:42 | XR ---
EXAMINATION TYPE: XR chest 2V DATE OF EXAM: 01/30/2024 COMPARISON: 08/26/2022 HISTORY: 73-year-old female [id number], shortness of breath TECHNIQUE: Frontal and lateral views FINDINGS: Heart normal size. Aorta and pulmonary vasculature within normal limits. There is some silhouetting o f the inferior right heart margin. Hyperinflation. Cholecystectomy clips. No pleural effusion. IMPRESSION: COPD. Some possible atelectasis versus early developing infiltrate at the medial right middle lobe.
== END | disposition home or self-care (01) ==
LOC: RADXRYALE 10:54
PROVIDERS: ATTEND Family Medicine
DX: J44.9 Chronic obstructive pulmonary disease, unspecified (principal)
CPT/HCPCS: 71046

== ENCOUNTER → 2024-02-13 | Outpatient (CLI) | payer MEDICARE ==
--- NOTE | 2024-02-13 10:23 | XR ---
EXAMINATION TYPE: XR chest 2V DATE OF EXAM: 02/13/2024 10:17 AM CLINICAL INDICATION:Female, 73 years old with history of J180,[id number],R062 SOB,WHEEZING; [facility] COMPARISON: Chest radiographs from 01/30/2024. TECHNIQUE: XR chest 2V Frontal and lateral views of the chest. FINDINGS: Lungs/Pleura: Stable appearance of the right middle lobe. No airspace consolidation. There is no evid ence of pleural effusion, focal consolidation, or pneumothorax. Pulmonary vascularity: Unremarkable. Heart/mediastinum: Cardiomediastinal silhouette is unremarkable. Musculoskeletal: No acute osseous pathology. Right upper quadrant cholecystectomy clips IMPRESSION: No acute cardiopulmonary disease/process.
== END | disposition home or self-care (01) ==
LOC: RADXRYALE 10:07
PROVIDERS: ATTEND Family Medicine
DX: J18.0 Bronchopneumonia, unspecified organism (principal); R06.02 Shortness of breath; R06.2 Wheezing
CPT/HCPCS: 71046